=== PATIENT | male | born 1995 | race Caucasian/White ===

== ENCOUNTER 2024-10-08 06:36 | Emergency (ER) | payer OTHER ==
[~2024-10-08] VITALS: Ht 182.9 cm; Wt 117.9 kg
[2024-10-08] MEDS ORDERED: methylPREDNISolone SOD SUCC 125 MG/2ML VIAL ONE (07:42)
[2024-10-08] MEDS ORDERED: IPRATROPIUM NEB FS 0.5 MG/2.5 ML AMPUL.NEB ONE ×2 (07:43→07:47)
[2024-10-08] MEDS ORDERED: ALBUTEROL FS 2.5 MG/3 ML VIAL.NEB ONE ×2 (07:43→07:47)
[2024-10-08] MEDS ORDERED: PRED50TA PO (07:49)
[2024-10-08] MEDS ORDERED: AZIT250T13 PO (07:49)
[2024-10-08] MEDS ORDERED: BENZ-13 PO (07:49)
[2024-10-08] MEDS ORDERED: AMOX-430 PO (07:49)
[2024-10-08 07:52] VITALS: O2SAT 95
[2024-10-08] MEDS: IPRATROPIUM NEB FS 0.5 MG/2.5 ML AMPUL.NEB NEB ONE (07:52)
[2024-10-08] MEDS: ALBUTEROL FS 2.5 MG/3 ML VIAL.NEB CONTNEB ONE (07:52)
[2024-10-08] MEDS: methylPREDNISolone SOD SUCC 125 MG/2ML VIAL IV ONE (08:05)
[2024-10-08 08:18] VITALS: BP 155/80; TEMP 98.5
[2024-10-08 08:52] VITALS: O2SAT 100
== END 2024-10-08 08:19 | disposition home or self-care (01) ==
LOC: ER 06:48
DX: J40 Bronchitis, not specified as acute or chronic (principal); J06.9 Acute upper respiratory infection, unspecified; R09.81 Nasal congestion; R06.02 Shortness of breath; R05.9 Cough, unspecified
CPT/HCPCS: 99285; 96374; 71045; 94644; J2919

== ENCOUNTER 2024-11-30 04:09 | Emergency (ER) | payer OTHER ==
[2024-11-30] VITALS (9 sets, daily range): BP systolic 135; BP diastolic 78; TEMP 98.5; O2SAT 97–100
[~2024-11-30] VITALS: Ht 182.9 cm; Wt 113.4 kg
[~2024-11-30 04:09] MED LIST: AMOX-430 PO; AZIT250T13 PO; BENZ-13 PO; PRED50TA PO
[2024-11-30] MEDS ORDERED: methylPREDNISolone SOD SUCC 125 MG/2ML VIAL ONE (04:37)
[2024-11-30] MEDS ORDERED: EPINEPHRINE (1:1000) 1 MG/ML AMPUL ONE (04:38)
[2024-11-30] MEDS ORDERED: cetrizine 10 MG TABLET ONE (04:38)
[2024-11-30] MEDS: IPRATROPIUM NEB FS 0.5 MG/2.5 ML AMPUL.NEB NEB ONE ×2 (04:41→05:35)
[2024-11-30] MEDS: ALBUTEROL FS 2.5 MG/3 ML VIAL.NEB CONTNEB ONE ×2 (04:41→05:35)
[2024-11-30] MEDS: cetrizine 10 MG TABLET PO ONE (04:47)
[2024-11-30] MEDS: EPINEPHRINE (1:1000) 1 MG/ML AMPUL SUBCUT ONE (04:47)
[2024-11-30] MEDS: methylPREDNISolone SOD SUCC 125 MG/2ML VIAL IV ONE (04:47)
[2024-11-30] MEDS ORDERED: ACETAMINOPHEN ES 500 MG TABLET ONE (04:48)
[2024-11-30] MEDS: ACETAMINOPHEN ES 500 MG TABLET PO ONE (04:49)
[2024-11-30] MEDS ORDERED: ALBUTEROL FS 2.5 MG/3 ML VIAL.NEB ONE ×2 (04:51→05:36)
[2024-11-30] MEDS ORDERED: IPRATROPIUM NEB FS 0.5 MG/2.5 ML AMPUL.NEB ONE ×2 (04:51→05:36)
[2024-11-30] MEDS ORDERED: CETI-90 PO (05:28)
[2024-11-30] MEDS ORDERED: ALBU8.5H8 INH (05:28)
[2024-11-30] MEDS ORDERED: PRED20TA PO (05:28)
== END 2024-11-30 06:09 | disposition home or self-care (01) ==
LOC: ER 04:11
DX: J45.901 Unspecified asthma with (acute) exacerbation (principal); T78.49XA Other allergy, initial encounter; Z79.52 Long term (current) use of systemic steroids; Z60.2 Problems related to living alone; Z79.899 Other long term (current) drug therapy; X58.XXXA Exposure to other specified factors, initial encounter
CPT/HCPCS: 99284; 96374; 71045; 93005; 94640; 96372; J2919; J0171

== ENCOUNTER 2025-03-22 18:48 | Inpatient (IN) | payer OTHER ==
[~2025-03-22] VITALS: Ht 185.4 cm; Wt 126.6 kg
[2025-03-22 10:40] VITALS: BP 135/95; TEMP 98.1; O2SAT 94
[~2025-03-22 18:48] MED LIST changes: +ALBU8.5H8 INH; +CETI-90 PO; +PRED20TA PO
[2025-03-22 18:58] VITALS: O2SAT 93
[2025-03-22] MEDS: ALBUTEROL FS 2.5 MG/3 ML VIAL.NEB NEB ONE ×2 (18:58→19:11)
[2025-03-22] MEDS ORDERED: ALBUTEROL FS 2.5 MG/3 ML VIAL.NEB ONE ×2 (19:02→19:19)
[2025-03-22 19:08] VITALS: O2SAT 98
[2025-03-22 19:11] VITALS: O2SAT 94
[2025-03-22 19:14] LABS: PLATELET COUNT (AUTO) 264 K/uL (150-450); RED BLOOD CELL COUNT(AUTO) 6.22 MIL/uL (4.5-6.0); RED CELL DISTRIBUTION WIDTH 13.1 % (11.5-15.0); WHITE BLOOD COUNT (AUTO) 10.8 K/uL (4.3-11.0)
[2025-03-22] MEDS ORDERED: Magnesium 1GM/D5W 100ML PREMIX 100 ML IV ONE ×2 (19:15→19:41)
[2025-03-22 19:21] VITALS: O2SAT 96
[2025-03-22] MEDS: Magnesium 1GM/D5W 100ML PREMIX 200 ML IV ONE (19:21)
[2025-03-22 19:25] LABS: CALCIUM, SERUM 8.5 mg/dL (8.5-10.1); CREATININE 1.2 mg/dL (0.6-1.3); SODIUM SERUM 140.0 mmol/L (136-145); UREA NITROGEN, BLOOD 12.0 mg/dL (7-18)
[2025-03-22 19:31] VITALS: O2SAT 96
[2025-03-22] MEDS ORDERED: ALBU18HF2 INH (21:50)
[2025-03-22] MEDS ORDERED: ACETAMINOPHEN 325 MG TABLET PO PRN (22:00)
[2025-03-22] MEDS ORDERED: MAGNESIUM HYDROXIDE 30 ML UDC PO PRN (22:00)
[2025-03-22] MEDS ORDERED: TEMAZEPAM 15 MG CAPSULE PO PRN (22:00)
[2025-03-22] MEDS ORDERED: ONDANSETRON HCL/PF 4 MG/2 ML VIAL IVP PRN (22:00)
[2025-03-22] MEDS ORDERED: MAG HYDROX/AL HYDROX/SIMETH 30 ML UDC PO PRN (22:00)
[2025-03-22] MEDS ORDERED: ALBUTEROL FS 2.5 MG/3 ML VIAL.NEB NEB PRN (22:00)
[2025-03-22] MEDS: ENOXAPARIN SODIUM 40 MG/0.4 ML DISP.SYRIN SQ SCH (23:01)
[2025-03-23] VITALS: BP 148/91; TEMP 97.5; O2SAT 93
[2025-03-23 04:00] VITALS: BP 114/92; TEMP 97.5; O2SAT 93
[2025-03-23] MEDS: IV NS 0.9% 1,000 ML IV PRN (06:17)
[2025-03-23 06:55] LABS: PLATELET COUNT (AUTO) 269 K/uL (150-450); RED BLOOD CELL COUNT(AUTO) 6.16 MIL/uL (4.5-6.0); RED CELL DISTRIBUTION WIDTH 12.9 % (11.5-15.0); WHITE BLOOD COUNT (AUTO) 8.6 K/uL (4.3-11.0)
[2025-03-23 07:26] LABS: CALCIUM, SERUM 9.0 mg/dL (8.5-10.1); CREATININE 1.3 mg/dL (0.6-1.3); SODIUM SERUM 139.0 mmol/L (136-145); UREA NITROGEN, BLOOD 11.0 mg/dL (7-18)
[2025-03-23 07:30] VITALS: BP 155/96; TEMP 98.1; O2SAT 97
[2025-03-23] MEDS: PANTOPRAZOLE 40 MG TABLET.DR PO SCH (08:48)
[2025-03-23 16:00] VITALS: BP 143/85; TEMP 97.3; O2SAT 93
[2025-03-23 20:00] VITALS: BP 141/66; TEMP 97.5; O2SAT 94
[2025-03-24] VITALS: BP 157/100; TEMP 97.5; O2SAT 97
[2025-03-24 08:35] VITALS: BP_SYST 126; BP_SYST 138; BP_DIAS 69; BP_DIAS 84; TEMP 97.7; TEMP 98; O2SAT 100; O2SAT 97
[2025-03-24] MEDS ORDERED: METH4TAB3 PO (11:37)
[2025-03-24] MEDS ORDERED: FLUT1DIS INH (11:37)
[2025-03-24] MEDS ORDERED: ALBU8.5H8 INH (11:37)
[2025-03-24 13:12] LABS: CALCIUM, SERUM 8.5 mg/dL (8.5-10.1); CREATININE 1.4 mg/dL (0.6-1.3); SODIUM SERUM 141.0 mmol/L (136-145); UREA NITROGEN, BLOOD 15.0 mg/dL (7-18)
[2025-03-24 13:32] LABS: PLATELET COUNT (AUTO) 245 K/uL (150-450); RED BLOOD CELL COUNT(AUTO) 6.00 MIL/uL (4.5-6.0); RED CELL DISTRIBUTION WIDTH 13.1 % (11.5-15.0); WHITE BLOOD COUNT (AUTO) 13.4 K/uL (4.3-11.0)
[2025-03-24 16:11] VITALS: BP 162/100; TEMP 98.5; O2SAT 97
[2025-03-24 20:00] VITALS: BP 122/88; TEMP 97.9; O2SAT 95
== END 2025-03-24 22:07 | disposition home or self-care (01) | DRG 422 ==
LOC: ER 20:23 → TELE 21:35 → MED 03-24 10:35
PROVIDERS: ADMIT Registered Nurse Psychiatric/Mental Health
DX: E86.0 Dehydration (principal); J45.901 Unspecified asthma with (acute) exacerbation; D68.69 Other thrombophilia; D75.839 Thrombocytosis, unspecified; Z87.09 Personal history of other diseases of the respiratory system; Z79.899 Other long term (current) drug therapy; Z79.51 Long term (current) use of inhaled steroids; Z71.6 Tobacco abuse counseling; F17.200 Nicotine dependence, unspecified, uncomplicated; R73.9 Hyperglycemia, unspecified; F12.90 Cannabis use, unspecified, uncomplicated
CPT/HCPCS: 36415; 71045-TC; 80048-TC; 83735-TC; 85025-TC; A4223; G0378; J1650; J2919; J3475; J7030